=== PATIENT | female | born 1995 | race Caucasian/White ===

== ENCOUNTER 2025-09-14 11:03 | Emergency (ER) | payer OTHER, SELFPAY ==
[2025-09-14 11:04] VITALS: BP 149/72
[2025-09-14 11:23] VITALS: BP 118/76
--- NOTE | 2025-09-14 11:33 | ED.GENMED ---
History of Present Illness
General
Chief Complaint: Post Operative Problem(s)
Source: patient and family
Exam Limitations: none
Time Seen by Provider: 09/14/25 11:12
Nursing documentation reviewed up to this point in time: agreed with
History of Present Illness
History of Present Illness:
30-year-old female with a past medical history of anxiety, depression, PTSD, endometriosis who presents to the emergency department with her mother for evaluation of abdominal pain. Patient reports onset of symptoms yesterday evening and they have
been constant and progressive since onset. She reports pain is located in the lower abdomen somewhat worse on the right side. Is associated with nausea and vomiting. She has not had any vaginal bleeding or discharge. She denies any urinary
symptoms. She has had subjective fever and chills. She makes note that a few days ago she was having some shortness of breath requiring ER visit while she was in [place]�there she had an extensive workup including CT PE which was reportedly
negative. She is notably status post egg retrieval procedure on 08/26/2025. She cannot recall her last menstrual period.
Past History
Social History
Tobacco: Non-smoker
Review of Systems
Review of Systems
All Other Systems: ROS reviewed and negative except as documented in HPI and ROS
Constitutional: Reports fever and chills
Respiratory: Reports trouble breathing
Cardiac: Denies chest pain
ABD/GI: Reports abdominal pain, nausea and vomiting
: Denies dysuria, frequency, flank pain or bleeding
Musculoskeletal: Denies neck pain
Phy Exam
Physical Exam
Physical Exam:
General: Patient is lying in bed resting appears mildly uncomfortable
Head: Normocephalic, atraumatic
Eyes: Conjunctiva normal, sclera anicteric
Throat: Airway intact, handling secretions
Neck: Trachea midline, supple without meningismus
Lungs: Breathing comfortably with no evidence of respiratory distress or cyanosis
Heart: Regular rate
Abd: Soft, non distended, tender to palpation in the right lower quadrant
Neuro: Grossly intact
Skin: Warm and dry
Extremities: Warm and well-perfused
Scores
Heart Failure Risk
Heart Failure Risk Score: Not Applicable
Heart Score for Chest Pain Patients
STEMI patient?: Not applicable
Withdrawal Assessment of Alcohol
Withdrawal Assessment Completed?: Not applicable
Course
Orders/Labs/Results
Orders:
Orders
09/14/25 11:31
CT Abd/pelvis W Iv Cont Urgent
Comment:
Reason For Exam: lower abd pain, recent egg retrieval procedure
Ketorolac [Toradol] 15 mg IV NOW STA
Ondansetron Injectable [Zofran] 4 mg IV NOW STA
09/14/25 11:32
0.9% Sodium Chloride 1000 ml [Nss] 1,000 ml IV BOLUS
Test Result ONCE
09/14/25 11:40
US Transvaginal [US Pelvis W Transvag Combined] Urgent
Comment:
Reason For Exam: lower abd pain
09/14/25 11:48
Complete Blood Count/With Diff Urgent
Comprehensive Metabolic Panel Urgent
HCG, Serum Qualitative Screen Urgent
Lipase Urgent
09/14/25 12:12
HYDROmorphone [Dilaudid] 0.5 mg IV NOW STA
09/14/25 13:57
Urinalysis Reflex To Culture Urgent
Date Specimen was Collected: 09/14/25
Time Specimen was Collected: 11:45
Comment: clean catch
Urine Microscopic Reflex Cult Urgent
09/14/25 15:38
Enema- Treatment ONCE
Type: Soap Suds
Abnormal Lab Results
09/14/25 09/14/25
11:48 13:57
WBC 13.7 H 10^3/uL
(4.8-10.8)
MCH 32.6 H pg
(27.0-31.0)
Abs Immat Gran (auto) 0.1 H 10^3/uL
(0-0.05)
Absolute Neuts (auto) 12.0 H 10^3/uL
(1.4-6.5)
Absolute Lymphs (auto) 1.0 L 10^3/uL
(1.2-3.4)
Immature Gran % 0.7 H %
(0-0.5)
Neutrophils % 87.3 H %
(42.2-75.2)
Lymphocytes % 7.6 L %
(20.5-51.1)
Carbon Dioxide 21 L mmol/L
(22-30)
Glucose 100 H mg/dl
(70-99)
Urine Ketones 2+ A
(Negative)
Urine Albumin (Reflex) 1+ A
(Neg - Trace)
09/14/25 11:48
09/14/25 11:48
Vital Signs
Initial and Last Documented VS:
Initial Vital Signs
Pulse BP
50 149/72
09/14/25 11:04 09/14/25 11:04
Last Documented Vital Signs
Pulse Resp BP Pulse Ox
73 12 99/63 96
09/14/25 15:15 09/14/25 15:15 09/14/25 15:00 09/14/25 11:38
MDM/Problems Addressed
Differential Diagnosis Includes:
Endometriosis, ovarian cyst, ovarian torsion, diverticulitis, appendicitis, abscess, nephrolithiasis, UTI
MDM/Problems Addressed:
30-year-old female who is nearly 3 weeks removed from egg retrieval procedure presents for evaluation of lower abdominal pain that started yesterday. Vitals and exam are as above. Plan to check labs including a CBC and a CMP, hCG. Check
urinalysis. Check CT abdomen. Ultrasound to rule out torsion. Treat symptomatically. Reassess after the above.
Labs reviewed: CBC shows leukocytosis, CMP no clinically significant abnormalities. hCG negative. Ultrasound which showed bilateral ovarian enlargement with good flow bilaterally. CT shows ovarian edema with cyst but no other acute abnormalities.
Patient concerned for OHSS after her recent procedure. Fortunately she appears much more comfortable, pain well-controlled with measures here in the ER. Discussed case with HIGHER LEVEL TEACHING ASSISTANT�agree this could be ovarian hyperstimulation but with reassuring
labs stable for discharge with supportive care. Patient feels comfortable to this will provide pain control measures. She did mention that she has been constipated and requested an enema here which we provided. Follow-up with HIGHER LEVEL TEACHING ASSISTANT on an
outpatient basis. All questions answered.
*Radiology
Radiology exam reviewed: radiology read reviewed
*Pulse Oximetry
SaO2: 96
Oxygen Mode of Delivery: Room air
Patient hypoxic: no (96%)
*Critical Care Note
Total Time (30-74mins, 75-104mins- exclusive of procedures): Not Applicable
Data Reviewed
Source: patient and family
Patient Management
Discussion with other providers: Grain Mill Worker (Discussed with HIGHER LEVEL TEACHING ASSISTANT)
ED Attending Note
-
Portions of this chart may have been created with voice recognition software.� Occasional wrong word or��sound alike� substitutions may have occurred due to the inherent limitations of voice recognition software.
Discharge Plan
Departure
Patient Disposition: Home (Routine Discharge)
Date of Disposition: 09/14/25
Time of Disposition: 15:38
Patient with high blood pressure during this ER visit?: No
Discharge Problem:
Pelvic pain
Instructions: Postoperative Pain (DC)
Prescriptions:
New
oxycodone 5 mg tablet
5 mg PO TID PRN (Reason: Pain) Qty: 10 0RF
No Action
lamotrigine [Lamictal] 200 mg Tablet
200 mg PO DAILY
clonazepam [Klonopin] 0.5 mg Tablet
0.25 - 0.5 mg PO PRN PRN (Reason: as directed)
bupropion HCl [Wellbutrin XL] 150 mg Tablet Extended Release 24 Hr
150 mg PO DAILY
quetiapine [Seroquel] 50 mg Tablet
50 mg PO DAILY
Referrals:
Sara Can DO [Active, Gynecology] - Call in 1-3 days for appt
Activity Restrictions/Additional Instructions:
Thank you for visiting the Emergency Department at [facility].
1. Please schedule a follow up appointment as directed. Call first thing tomorrow morning to make an appointment.
2. If indicated, please take your medications as instructed and indicated on discharge paperwork.
3. If any of your symptoms do not improve, or persist, or become more severe within 6-12 hours, please return to the emergency department for further care.
4. Please return to the emergency department if you develop a headache, neck pain/stiffness, fever greater than 100.4F, chest pain, shortness of breath, persistent nausea, vomiting, slurred speech, difficulty walking, numbness/tingling, weakness,
signs of infection or any other symptoms that are worrisome to you.
Please call [phone] if you have any questions.
Interventions
Interventions:
*General Assessment Last Done: 09/14/25 11:04
*ED COVID-19 Vaccine History Last Done: 09/14/25 11:47
*ED Influenza Vaccine History Last Done: 09/14/25 11:47
[facility] Risk Assessment Tool Last Done: 09/14/25 11:47
*Risk Screen - Suicide (C-SSRS) Last Done: 09/14/25 11:04
ED-Skin Assessment Last Done: 09/14/25 11:53
Discharge Date and Time
Print Language: BAHRAINI
[2025-09-14 11:47] VITALS: BMI 22.0
[2025-09-14] MEDS: NSS 1000 IV (11:49)
[2025-09-14] MEDS: TORADOL 15 MG IV (11:49)
[2025-09-14] MEDS: ZOFRAN 4 MG IV (11:49)
[2025-09-14 12:00] VITALS: BP 89/64
[2025-09-14 12:05] LABS: Hematocrit 40.0 % (37.0-47.0); Hemoglobin 14.0 g/dL (12.0-16.0); Mean Corp Hgb Conc. 35.0 g/dL (33.0-37.0); Mean Corpuscular Volume 93.0 fL (81.0-99.0); Nucleated Red Blood Cells % 0 %; Platelet Count 225 10^3/uL (130-400); Red Cell Dist. Width 12.1 % (11.5-14.5)
[2025-09-14 12:15] LABS: HCG, Serum Qualitative Screen Negative
[2025-09-14 12:21] LABS: ALT (SGPT) 18 U/L (0-35); AST (SGOT) 25 U/L (14-36); Albumin 4.3 g/dl (3.5-5.0); Alkaline Phosphatase 59 U/L (38-126); Blood Urea Nitrogen 16 mg/dl (7-17); Calcium 8.9 mg/dl (8.4-10.2); Carbon Dioxide 21 mmol/L (22-30); Chloride 107 mmol/L (98-107); Estimated Creatinine Clearance 90 ml/min; Glucose 100 mg/dl (70-99); Lipase 184 U/L (23-300); Potassium 3.9 mmol/L (3.5-5.1); Sodium 135 mmol/L (135-145); Total Protein 7.3 g/dl (6.3-8.2); eGFR > 60.00
[2025-09-14 13:10] VITALS: BP 107/73
[2025-09-14] MEDS: DILAUDID 0.5 MG IV ×2 (13:52→15:58)
[2025-09-14 14:00] VITALS: BP 102/67
[2025-09-14 15:00] VITALS: BP 99/63
[2025-09-14 15:13] LABS: Urine Character Clear (Clear)
[2025-09-14 15:43] LABS: Urine Red Blood Cell 0-2 /HPF (0-2); Urine Squamous Cell 0-2 /LPF (Few); Urine White Cell 0-2 /HPF (0-5)
[2025-09-14] MEDS: CITROMA 300 ML PO (16:22)
== END 2025-09-14 17:46 | disposition home or self-care (01) ==
LOC: EMR 11:03
PROVIDERS: EMERGENCY PHYSICIAN Emergency Medicine
DX: R10.21 Pelvic and perineal pain right side (principal); K59.00 Constipation, unspecified; F41.9 Anxiety disorder, unspecified; F32.A Depression, unspecified; F43.10 Post-traumatic stress disorder, unspecified
CPT/HCPCS: 99284; 96374; 96375 ×2; 96376; 96361; 74177; 76830; 76856; 80053; 81003; 81015; 83690; 84703; 85025; Q9967

== ENCOUNTER 2025-09-17 11:46 | Day surgery (SDC) | payer OTHER, SELFPAY ==
[2025-09-17] VITALS (14 sets, daily range): BP systolic 93–134; BP diastolic 63–92; BMI 21.5
[2025-09-17 04:26] LABS: Hematocrit 38.3 % (37.0-47.0); Hemoglobin 13.7 g/dL (12.0-16.0); Mean Corp Hgb Conc. 35.8 g/dL (33.0-37.0); Mean Corpuscular Volume 92.7 fL (81.0-99.0); Nucleated Red Blood Cells % 0 %; Platelet Count 223 10^3/uL (130-400); Red Cell Dist. Width 11.9 % (11.5-14.5)
--- NOTE | 2025-09-17 04:31 | ED.GENMED ---
History of Present Illness
General
Chief Complaint: Gynecological Problem
Source: patient
Time Seen by Provider: 09/17/25 04:00
Nursing documentation reviewed up to this point in time: agreed with
History of Present Illness
History of Present Illness:
Note:
CHIEF COMPLAINT(S)
Severe abdominal pain and inability to talk due to pain, with episodes of vomiting and near syncope.
HISTORY OF PRESENT ILLNESS
The patient is a 30-year-old female with a history of endometriosis. She presented with severe abdominal pain that caused her to black out, vomit, and almost faint. On September 05, she had an ovarian retrieval procedure, and on September 15, she
experienced intense pain leading to her initial emergency visit. She describes the pain as stabbing and nerve-like, which she associates with intermittent ovarian torsion. During the emergency visit, an ultrasound did not show any signs of torsion,
though her fertility doctor and both her past and current OB/GYNs in [place] strongly suspected intermittent torsion, noting it may not always show evidence on imaging. She has been managing the pain with oxycodone, acetaminophen, and ibuprofen.
She experienced a similar episode of worsening pain approximately 30 minutes before this visit, comparable to the intensity experienced two days prior. She started her menstrual period today and reported no recent intercourse and a negative
test.
REVIEW OF SYSTEMS
- Gastrointestinal: Gagging, vomiting.
- Musculoskeletal: Unable to put weight on the right leg due to pain.
- Genitourinary: Severe abdominal pain, started menstrual period, no vaginal bleeding beyond menstruation, negative test.
- Neurological: Syncope, near fainting episodes due to pain.
PHYSICAL EXAM
General: Alert, moderate acute distress upon arrival that diminished throughout the visit
Skin: Warm, dry.
Head: Normocephalic, atraumatic.
Neck: Supple, trachea midline.
Eyes, Ears, Nose, Mouth and Throat: Oral mucosa moist.
Cardiovascular: Normal peripheral perfusion, no edema.
Respiratory: Respirations are non-labored.
Gastrointestinal: Abdomen nondistended.
Musculoskeletal: Normal range of motion, normal strength but unable to put weight on the right leg due to pain.
Neurological: Alert and oriented to person, place, time, and situation, no focal neurological deficit observed.
Psychiatric: Cooperative, appropriate mood and affect.
PLAN
- Contact the patients fertility specialist and JOURNALISTS AND OTHER WRITERS for consultation regarding her current symptoms and potential intermittent ovarian torsion.
- Administer pain relief as needed.
- Conduct blood work to evaluate for any abnormalities.
DIFFERENTIAL DIAGNOSIS
The Differential Diagnosis includes, in no particular order and is not limited to:
1. Ovarian torsion
2. Endometriosis flare
3. Adnexal mass or cyst
4. Pelvic inflammatory disease
5. Appendicitis
6. Ectopic
7. Gastroenteritis
8. Inguinal hernia strangulation
9. Renal colic
10. Diverticulitis
Disposition:
SUMMARY OF ENCOUNTER
The 30-year-old female patient presented to the emergency department with severe pelvic pain, having experienced a similar episode two days prior. She has a history of endometriosis and is undergoing fertility treatments in [place]. Her fertility
doctor suspected intermittent ovarian torsion, although the ultrasound conducted was negative. An JOURNALISTS AND OTHER WRITERS evaluated her at the bedside and decided to take her to the operating room for a laparoscopic procedure to further evaluate for torsion as her
pain persisted, but subsided later.
DISPOSITION
Transfer to the operating room for evaluation.
ASSESSMENT
Intermittent ovarian torsion suspected despite negative ultrasound findings.
MANAGEMENT OF THE PATIENTS CARE WAS DISCUSSED WITH
The patients care was managed in consultation with JOURNALISTS AND OTHER WRITERS, who decided on a laparoscopic evaluation for possible ovarian torsion.
PLAN
Proceed with laparoscopic procedure to evaluate for possible ovarian torsion.
MEDICAL DECISION MAKING
-Chronic conditions affecting care: Endometriosis.
-DDx list: Ovarian torsion, Endometriosis flare, Adnexal mass or cyst, Pelvic inflammatory disease, Appendicitis, Ectopic , Gastroenteritis, Inguinal hernia strangulation, Renal colic, Diverticulitis.
-Data:
Category 3: Discussion of management with JOURNALISTS AND OTHER WRITERS specialist to decide on the need for laparoscopic procedure.
DIAGNOSIS
1. Ovarian torsion, suspected (ICD-10: N83.51)
2. Endometriosis (ICD-10: N80.9)
Past History
Social History
Tobacco: Non-smoker
Phy Exam
Physical Exam
Physical Exam:
.
Course
Orders/Labs/Results
Orders:
Orders
09/17/25 04:05
0.9% Sodium Chloride 1000 ml [Nss] 1,000 ml IV BOLUS
HYDROmorphone [Dilaudid] 0.5 mg IV NOW STA
Ondansetron Injectable [Zofran] 4 mg IV NOW STA
Test Result ONCE
US Pelvis W Transvag Combined Urgent
Reason For Exam: r pelvic pain consider torsion
09/17/25 04:14
Complete Blood Count/With Diff Urgent
Comprehensive Metabolic Panel Urgent
HCG, Serum Qualitative Screen Urgent
Lactic Acid Q4H
Comment: CANCEL 2nd LACTIC ACID IF 1st LACTIC ACID IS LESS THAN 2
09/17/25 04:15
Type+Screen Urgent
Abnormal Lab Results
09/17/25
04:14
RBC 4.13 L 10^6/uL
(4.20-5.40)
MCH 33.2 H pg
(27.0-31.0)
Absolute Lymphs (auto) 1.0 L 10^3/uL
(1.2-3.4)
Neutrophils % 77.1 H %
(42.2-75.2)
Lymphocytes % 15.4 L %
(20.5-51.1)
09/17/25 04:14
09/17/25 04:14
Vital Signs
Initial and Last Documented VS:
Initial Vital Signs
Temp Pulse Resp BP Pulse Ox
99.5 F 86 20 134/92 99
09/17/25 03:43 09/17/25 03:43 09/17/25 03:43 09/17/25 03:43 09/17/25 03:43
Last Documented Vital Signs
Temp Pulse Resp BP Pulse Ox
99.5 F 66 12 116/72 98
09/17/25 03:43 09/17/25 06:15 09/17/25 06:15 09/17/25 06:00 09/17/25 06:15
*Radiology
Radiology exam reviewed: radiology read reviewed
*Pulse Oximetry
SaO2: 99
Oxygen Mode of Delivery: Room air
Patient hypoxic: no
*Critical Care Note
Total Time (30-74mins, 75-104mins- exclusive of procedures): 33 (Critical care statement: A total of 33 minutes of critical care time was provided for this patient. This time is separate from time utilized to perform the aforementioned documented
procedures. Aggregate critical care time includes only time during which I was engaged in work directl)
Update Note
Update Note:
spoke with Dr Can upon arrival. Requests call back with US results
ED Attending Note
-
Portions of this chart may have been created with voice recognition software.� Occasional wrong word or��sound alike� substitutions may have occurred due to the inherent limitations of voice recognition software.
Discharge Plan
Departure
Patient Disposition: OR
Date of Disposition: 09/17/25
Time of Disposition: 06:49
Presentation/result/management discussed w/ accepting MD/DO: Dr. Can
Condition: Fair
Discharge Problem:
Pelvic pain
Prescriptions:
No Action
lamotrigine [Lamictal] 200 mg Tablet
200 mg PO DAILY
clonazepam [Klonopin] 0.5 mg Tablet
0.25 - 0.5 mg PO PRN PRN (Reason: as directed)
bupropion HCl [Wellbutrin XL] 150 mg Tablet Extended Release 24 Hr
150 mg PO DAILY
quetiapine [Seroquel] 50 mg Tablet
50 mg PO DAILY
oxycodone 5 mg tablet
5 mg PO TID PRN (Reason: Pain) Qty: 10 0RF
Referrals:
Sara Can, DO [Family Provider, Gynecology]
Interventions
Interventions:
*General Assessment Last Done: 09/17/25 03:43
*Neglect/Abuse Screening Last Done: 09/17/25 03:43
*ED COVID-19 Vaccine History Last Done: 09/17/25 03:43
*ED Influenza Vaccine History Last Done: 09/17/25 03:43
[facility] Fall Risk Assessment Tool Last Done: 09/17/25 04:18
*Risk Screen - Suicide (C-SSRS) Last Done: 09/17/25 03:43
ED-Female Genitourinary Assessment Last Done: 09/17/25 05:16
Discharge Date and Time
Print Language: BOLIVIAN
[2025-09-17 04:35] LABS: HCG, Serum Qualitative Screen Negative
[2025-09-17 04:47] LABS: ALT (SGPT) 16 U/L (0-35); AST (SGOT) 20 U/L (14-36); Albumin 4.3 g/dl (3.5-5.0); Alkaline Phosphatase 61 U/L (38-126); Blood Urea Nitrogen 13 mg/dl (7-17); Calcium 9.3 mg/dl (8.4-10.2); Carbon Dioxide 23 mmol/L (22-30); Chloride 105 mmol/L (98-107); Glucose 89 mg/dl (70-99); Potassium 4.0 mmol/L (3.5-5.1); Sodium 136 mmol/L (135-145); Total Protein 6.9 g/dl (6.3-8.2); eGFR > 60.00
[2025-09-17] MEDS: DILAUDID 0.5 MG IV ×3 (05:07→10:12)
[2025-09-17] MEDS: NSS 1000 IV (05:07)
[2025-09-17] MEDS: ZOFRAN 4 MG IV (05:07)
--- NOTE | 2025-09-17 08:10 | W.PN.UPDATE ---
Update Note
Progress Note Update
Pt seen in ER this am. Consented for robotic dx laparoscopy to evaluate for recurrent abdominal pain s/p egg retrieval in [place] 09/05 with ovarian hyperstimulation syndrome. There was no torsion seen on US. This is third episode severe pain and
syncopal episode since procedure 09/05 and recommended dx lapaorscopy to endure no intermittent torsion and to decompress ovarian cysts. She consented for surgery but then when called to go to OR (bumped my other case) she started having second
thoughts and wanted time to consider. During time in ER with her (over 1 hr) she appears comfortable and converses easily. I want her to be certain about proceeding. I recommended dx laparoscopy and her Mother wants her to have the procedure as
well. Benefits, risks of surgery and risks of refusal reviewed in detail and outlined this conversation on written H&P paperwork. She asked if I could do my other surgery first and give her more time to consider her decision. She is leaning towards
having dx laparoscopy.
She is not exhibiting signs of torsion presently and I feel in my judgment ok to wait for her to decide. I have a surgery that will take approx 2 hrs.
--- NOTE | 2025-09-17 08:56 | PHANOTE ---
09/17/2025, pt. gets her meds filled at a [facility] in [place] ([address]); pharmacy not open at time of interview; could not confirm pt.'s Concerta and Buspirone doses.
--- NOTE | 2025-09-17 11:13 | EDRN ---
Dr. Baltazar here at bedside to see pt.
--- NOTE | 2025-09-17 14:23 | W.IMMPOSTOP ---
Surgical Immed Post Op Note
-
Primary Surgeon: Sara Can DO
Insurance Examining Clerk:BERNA Minor
Pre-op Diagnosis: Acute right lower quadrant abdominal pain; recent egg retrieval, hyperstimulation of ovaries, multicystic ovaries, possible torsion, dysmenorrhea, adenomyosis
Post-op Diagnosis: same as above; right ovarian/fallopian tube torsion, endometriosis implant in cul de sac
Procedure Performed: Diagnostic laparoscopy with de-torsion/reduction of right adnexal torsion
Anesthesia Type: general ET Dr. Desir
Specimen / Cultures: none
Estimated Blood Loss: 5ml
Complications: none
Operative Findings: Globular but normal sized uterus, sounded to 7cm. Left ovary with 1.5cm simple cyst, otherwise normal appearance. Normal appearing left tube.
Enlarged right ovary at least 9 cm estimated size with multiple cysts. Right ovarian and right fallopian tube torsion (double twist of pedicle). Right ovary with evidence of blood flow, healthy appearing tissue.
Small amount of fluid in cul de sac (may be from water drop test from Veress insertion). Small superficial 1-2mm brown implant of endometriosis in cul de sac. No other evidence of endometriosis in pelvis, cul de sac, ovarian fossa. No adhesions.
Counts correct times 2.
Stable to recovery.
Findings reviewed postoperatively with Julieta and her Mother. I also contacted Julieta's Fertility doctor, Dr. Denzel Ornelas in [place], [place], and reviewed operative findings.
== END 2025-09-17 14:40 | disposition home or self-care (01) ==
LOC: SDS 11:46
PROVIDERS: ATTENDING PHYSICIAN Obstetrics & Gynecology; EMERGENCY PHYSICIAN Student in an Organized Health Care Education/Training Program
DX: N83.511 Torsion of right ovary and ovarian pedicle (principal); N80.03 Adenomyosis of the uterus; N98.1 Hyperstimulation of ovaries; N94.6 Dysmenorrhea, unspecified; Z98.890 Other specified postprocedural states
CPT/HCPCS: 58679; 76830; 76856; 80053; 83605; 84703; 85025; 86850; 86900; 86901; 96374; 96375; 99291